=== PATIENT | female | born 1990 | race Caucasian/White ===

== ENCOUNTER 2018-06-29 15:11 | Outpatient (CLI) | payer OTHER | END 2018-06-29 17:00 | disposition home or self-care (01) | LOC: SONOGRAMA 15:11 | DX: Z34.81 Encounter for supervision of other normal pregnancy, first trimester (principal) ==

== ENCOUNTER → 2018-08-15 | Emergency (ER) | payer OTHER ==
[~2018-08-15] VITALS: Ht 160 cm; Wt 61.2 kg
[~2018-08-15] MED LIST: OBSTETRIX ONE1 EACH
== END | disposition home or self-care (01) ==
LOC: ER 09:21
DX: O20.0 Threatened abortion (principal); Z34.01 Encounter for supervision of normal first pregnancy, first trimester

== ENCOUNTER 2019-01-22 08:42 | Outpatient (CLI) | payer OTHER | END 2019-01-22 09:28 | disposition home or self-care (01) | LOC: NST 08:42 | DX: Z34.83 Encounter for supervision of other normal pregnancy, third trimester (principal) ==

== ENCOUNTER 2019-02-08 10:15 | Inpatient (IN) | payer OTHER ==
[~2019-02-08] VITALS: Ht 157.5 cm; Wt 77.1 kg
== END 2019-02-20 13:29 | DRG 807 ==
LOC: OB/GYN 02-18 07:18 → LDR 02-18 07:18 → OB/GYN 02-18 18:09
PROVIDERS: ADMIT Obstetrics & Gynecology Maternal & Fetal Medicine
PROC: 10E0XZZ Delivery of Products of Conception, External Approach (ICD-10-PCS; principal; 2019-02-18)
PROC: 0HQ9XZZ Repair Perineum Skin, External Approach (ICD-10-PCS; 2019-02-18)
PROC: 4A0HXFZ Measurement of Products of Conception, Cardiac Rhythm, External Approach (ICD-10-PCS; 2019-02-18)
DX: O70.1 Second degree perineal laceration during delivery (principal); Z37.0 Single live birth; Z3A.38 38 weeks gestation of pregnancy

== ENCOUNTER 2019-02-15 08:21 | Outpatient (CLI) | payer OTHER | END 2019-02-15 12:04 | disposition home or self-care (01) | LOC: NST 08:21 | DX: Z34.83 Encounter for supervision of other normal pregnancy, third trimester (principal) ==

== ENCOUNTER 2021-06-15 10:07 | Inpatient (IN) | payer OTHER ==
[~2021-06-15] VITALS: Ht 160 cm; Wt 73.5 kg
== END 2021-06-29 11:44 | disposition home or self-care (01) | DRG 807 ==
LOC: OB/GYN 10:07 → LDR 06-27 03:50 → OB/GYN 06-27 08:40
PROVIDERS: ADMIT Obstetrics & Gynecology Maternal & Fetal Medicine; ATTEND Obstetrics & Gynecology Maternal & Fetal Medicine
PROC: 10E0XZZ Delivery of Products of Conception, External Approach (ICD-10-PCS; principal; 2021-06-27)
PROC: 0HQ9XZZ Repair Perineum Skin, External Approach (ICD-10-PCS; 2021-06-27)
PROC: 4A1HXFZ Monitoring of Products of Conception, Cardiac Rhythm, External Approach (ICD-10-PCS; 2021-06-27)
DX: O42.02 Full-term premature rupture of membranes, onset of labor within 24 hours of rupture (principal); Z37.0 Single live birth; O70.0 First degree perineal laceration during delivery; Z3A.38 38 weeks gestation of pregnancy

== ENCOUNTER 2021-06-21 10:06 | Outpatient (CLI) | payer OTHER | END 2021-06-21 11:09 | disposition home or self-care (01) | LOC: NST 10:06 | PROVIDERS: ATTEND Obstetrics & Gynecology | DX: Z34.83 Encounter for supervision of other normal pregnancy, third trimester (principal) ==

== ENCOUNTER 2021-06-25 08:39 | Outpatient (CLI) | payer OTHER | END 2021-06-25 09:25 | disposition home or self-care (01) | LOC: NST 08:39 | PROVIDERS: ATTEND Obstetrics & Gynecology | DX: Z34.83 Encounter for supervision of other normal pregnancy, third trimester (principal) ==